=== PATIENT | female | born 1955 | race Caucasian/White ===

== ENCOUNTER 2016-09-27 07:49 | Emergency (ER) | payer OTHER ==
[~2016-09-27] VITALS: Ht 152.4 cm; Wt 63.0 kg
[2016-09-27 07:51] VITALS: Ht 152.4 cm; Wt 63.0 kg
[2016-09-27] MEDS ORDERED: SOD CHLORIDE 0.9% 500 ML IV STA (08:23)
[2016-09-27 08:55] LABS: ADD SCAN DIFF NO
--- NOTE | 2016-09-27 08:58 | RADRPT ---
PROCEDURE: CT Abdomen and pelvis without contrast. CLINICAL INDICATION: Abdominal Pain TECHNIQUE: CT scan of the abdomen and pelvis without contrast was performed on a multidetector hig h-resolution CT scan. . Coronal and sagittal reformatted images were obtained from the axial [facility] e images. Standard CT scan of the abdomen pelvis without contrast protocols were performed. The total exam CTDI equals 8.47 mGy and the total exam DLP equals 422.56 mGy-cm. One or more of the following dose reduction techniques were used: - Automated exposure control. - Adjustment of the mA and/or kV according to patient size. Use of iterative reconstruction technique. COMPARISON: None. FINDINGS: The kidneys are normal in size without calcified renal calculi, hydronephrosis or intra renal masses bilaterally. The ureters and urinary bladder are unremarkable. There is diverticulosis of the descending and sigmoid colon without CT evidence of diverticulitis. The colon is otherwise unremarkable. The appendix is unremarkable. The stomach and small bowel are unremarkable. The liver spleen pancreas adrenal glands and gallbladder are unremarkable. No evidence biliary duct al dilation. There is no evidence of intra or free air, free fluid, abscesses or lymphadenopathy. The uterus is anteverted and anteflexed. Note that the cervix appears enlarged and a pelvic ultrasound may be hel pful for further evaluation. No adnexal masses. There is atherosclerotic vascular disease but no evidence of aortic aneurysm. Lung bases are unrema rkable. There are degenerative changes lower thoracic and lumbar spine without acute osseous findings are os teoblastic/osteolytic lesions. Lower thoracic abdominal pelvic shea are unremarkable. IMPRESSION: 1. Diverticulosis of the descending and sigmoid colon without CT evidence of diverticulitis. 2. Unremarkable appendix. 3. Negative for urinary calcified calculi or obstructive uropathy. 4. Negative for intra-abdominal free air fluid abscesses or lymphadenopathy. 5. The cervix appears enlarged in a pelvic ultrasound is suggested for further evaluation. RPTAT:AAJJ Physician Michael Date Time Electronically viewed and signed by Physician Michael on 09/27/2016 08:57 BM/
[2016-09-27 09:01] LABS: BASOPHIL # 0.1 10^3/ul (0.0-0.1); BASOPHILS % 0.9 % (0.0-2.0); EOSINOPHILS # 0.1 10^3/ul (0.0-0.5); EOSINOPHILS % 2.1 % (0.0-7.0); HEMATOCRIT 42.9 % (37.0-47.0); HEMOGLOBIN 14.1 g/dl (12.0-16.0); LYMPHOCYTES % 35.2 % (15.0-51.0); MEAN CORPUSCULAR HEMOGLOBIN 30.3 pg (29.0-33.0); MEAN CORPUSCULAR HGB CONC 32.9 g/dl (32.0-37.0); MEAN CORPUSCULAR VOLUME 92.3 fl (82.0-101.0); MEAN PLATELET VOLUME 10.8 fl (7.4-10.4); MONOCYTE # 0.4 10^3/ul (0.3-0.9); NEUTROPHIL # 3.2 10^3/ul (1.6-7.5); NEUTROPHILS % 55.6 % (39.0-77.0); PLATELET COUNT 210 10^3/UL (140-415); RED BLOOD COUNT 4.65 10^6/ul (4.20-5.40); RED CELL DISTRIBUTION WIDTH 12.1 % (11.5-14.5); WHITE BLOOD COUNT 5.8 10^3/ul (4.8-10.8)
[2016-09-27 09:37] LABS: ALBUMIN 4.5 g/dl (3.3-4.9); ALBUMIN/GLOBULIN RATIO 1.55; BILIRUBIN,INDIRECT 0.4 mg/dl (0-1.1); BILIRUBIN,TOTAL 0.4 mg/dl (0.2-1.3); CALCIUM 9.1 mg/dl (8.4-10.2); CREATININE 0.55 mg/dl (0.44-1.00); POTASSIUM 3.8 mmol/L (3.5-5.1); TOTAL PROTEIN 7.4 g/dl (6.1-8.1)
[2016-09-27 10:36] LABS: ADD UMIC YES; URINE BILIRUBIN (Dip) NEGATIVE (NEGATIVE); URINE BLOOD (Dip) TRACE (NEGATIVE); URINE COLOR LT. YELLOW (YELLOW); URINE GLUCOSE (Dip) NEGATIVE (NEGATIVE); URINE KETONES (Dip) NEGATIVE (NEGATIVE); URINE LEUKOCYTE ESTERASE (Dip) TRACE (NEGATIVE); URINE NITRITE (Dip) NEGATIVE (NEGATIVE); URINE TOTAL PROTEIN (Dip) NEGATIVE (NEGATIVE); URINE UROBILINOGEN (Dip) 0.2 E.U./dL (0.1-1.0)
--- NOTE | 2016-09-27 10:40 | RADRPT ---
PROCEDURE: US Abdomen (right upper quadrant). CLINICAL INDICATION: Right upper quadrant pain TECHNIQUE: Multiple real-time longitudinal and transverse images of the right upper quadrant of th e abdomen were acquired utilizing a curved array transducer. Images were reviewed on a high-resoluti on PACS workstation. COMPARISON: None FINDINGS: The liver is mildly enlarged and fatty in echogenicity without focal mass or intrahepatic biliary di latation. The portal vein is normal in flow and direction. The gallbladder is normal. The common bi le duct measures 4.7 mm in maximal dimension. The visualized portions of the pancreas are unremarka ble with obscuration of the tail of the pancreas. No free fluid is identified. The right kidney measures 10.0 cm in length. There is no evidence of obstructive uropathy or urolith iasis. No renal masses seen. Visualized portions aorta and inferior vena cava are normal. IMPRESSION: Hepatomegaly with steatosis. Otherwise unremarkable. RPTAT: QQ .Charles Alnaiz MD, Date Time Electronically viewed and signed by .Charles Alaniz MD, on 09/27/2016 10:40 .L/
[2016-09-27 10:58] LABS: BACTERIA,URINE RARE; URINE RBCS 0-2 /HPF (0)
[2016-09-27 11:25] VITALS: BP 128/86; PULSE 55; RESP 16; TEMP 98.4
--- NOTE | 2016-09-27 11:35 | ERD ---
ER Documentation Chief Complaint Date/Time DATE: 09/27/16 TIME: 11:04 Chief Complaint rt lower abd pain x 5 days HPI 61-year-old female with no significant past medical history other than chronic back pain these. The pain is constant, nonradiating, burning internally she states. Is a 7 out of 10. She has no associated nausea, vomiting, constipation , diarrhea, hematochezia, or melena. No associated fevers, chills, dysuria. She was seen by her primary care doctor who ordered an ultrasound but that is scheduled next month. Nothing seems to make the pain better or worse. ROS All systems reviewed and are negative except as per history of present illness. Allergies Allergies: Coded Allergies: levofloxacin (Verified Allergy, Intermediate, ITCHING/RASH ON ENTIRE BODY , 09/27/16) PMhx/Soc History of Surgery: Yes (HEMORRHOID) Anesthesia Reaction: No Hx Neurological Disorder: No Hx Respiratory Disorders: No Hx Cardiac Disorders: No Hx Psychiatric Problems: No Hx Miscellaneous Medical Probl: No Hx Alcohol Use: No Hx Substance Use: No Hx Tobacco Use: No Smoking Status: Never smoker FmHx Family History: No diabetes Physical Exam Vitals Vital Signs Date Time Temp Pulse Resp B/P Pulse Ox O2 Delivery O2 Flow Rate FiO2 09/27/16 08:25 60 16 120/75 98 Room Air 09/27/16 07:51 98.2 67 16 126/73 96 Physical Exam Const: Well-appearing, nontoxic, no distress Head: Atraumatic Eyes: Normal Conjunctiva ENT: Normal External Ears, Nose and Mouth. Neck: Full range of motion..~ No meningismus. Resp: Clear to auscultation bilaterally Cardio: Regular rate and rhythm, no murmurs Abd: Soft, right upper quadrant and right lower quadrant tenderness to palpation which is mild, no rebound or guarding, non distended. No masses. Negative Elkins sign. No McBurney's point tenderness. Normal bowel sounds Skin: No petechiae or rashes Back: No midline or flank tenderness Ext: No cyanosis, or edema Neur: Awake and alert Psych: Normal Mood and Affect Result Diagram: 09/27/16 0840 09/27/16 0840 Results 24 hrs Laboratory Tests Test 09/27/16 08:40 09/27/16 10:10 White Blood Count 5.810^3/ul Red Blood Count 4.6510^6/ul Hemoglobin 14.1g/dl Hematocrit 42.9% Mean Corpuscular Volume 92.3fl Mean Corpuscular Hemoglobin 30.3pg Mean Corpuscular Hemoglobin Concent 32.9g/dl Red Cell Distribution Width 12.1% Platelet Count 25542^3/UL Mean Platelet Volume 10.8fl Neutrophils % 55.6% Lymphocytes % 35.2% Monocytes % 6.0% Eosinophils % 2.1% Basophils % 0.9% Nucleated Red Blood Cells % 0.0/100WBC Neutrophils # 3.210^3/ul Lymphocytes # 2.010^3/ul Monocytes # 0.410^3/ul Eosinophils # 0.110^3/ul Basophils # 0.110^3/ul Nucleated Red Blood Cells # 0.010^3/ul Sodium Level 145mmol/L Potassium Level 3.8mmol/L Chloride Level 107mmol/L Carbon Dioxide Level 30mmol/L Anion Gap 12 Blood Urea Nitrogen 15mg/dl Creatinine 0.55mg/dl Glucose Level 99mg/dl Calcium Level 9.1mg/dl Total Bilirubin 0.4mg/dl Direct Bilirubin 0.00mg/dl Indirect Bilirubin 0.4mg/dl Aspartate Amino Transf (AST/SGOT) 77IU/L Alanine Aminotransferase (ALT/SGPT) 97IU/L Alkaline Phosphatase 81IU/L Total Protein 7.4g/dl Albumin 4.5g/dl Globulin 2.90g/dl Albumin/Globulin Ratio 1.55 Lipase 126U/L Urine Color LT. YELLOW Urine Clarity CLEAR Urine pH 6.5 Urine Specific [place] 1.020 Urine Ketones NEGATIVE Urine Nitrite NEGATIVE Urine Bilirubin NEGATIVE Urine Urobilinogen 0.2 E.U./dL Urine Leukocyte Esterase TRACE Urine Microscopic RBC 0-2/HPF Urine Microscopic WBC 0-2/HPF Urine Bacteria RARE Urine Hemoglobin TRACE Urine Glucose NEGATIVE% Urine Total Protein NEGATIVE Current Medications Medications (Trade) Dose Ordered Sig/[place] Route PRN Reason Start Time Stop Time Status Last Admin Dose Admin Sodium Chloride (NS) 500 ml @ 500 mls/hr Q1H STAT IV 09/27/16 08:23 09/27/16 09:22 DC 09/27/16 08:30 Procedures/MDM Labs: No significant abnormalities on CBC and CMP other than mild elevation in liver enzymes. UA normal Imaging: CT abdomen and pelvis without contrast: No acute abnormalities, diverticulosis noted Ultrasound right upper quadrant: No acute abnormalities, hepatic steatosis noted MDM: Patient is presenting with right-sided abdominal pain for several days. She is afebrile with stable vitals. Her exam is not concerning for surgical abdomen. Her imaging did not show any acute abnormalities. I considered acute cholecystitis, choledocholithiasis, pneumonia, appendicitis, colitis, diverticulitis, pyelonephritis, and kidney stone, however there is no evidence of these. I explained to the patient that I do not know the etiology of her pain but does not seem to be anything serious at this time. I did recommend close follow-up with her primary care doctor in the next 2-3 days if her pain continues as she may need a GI referral. I advised she continue taking Tylenol for the pain. Return precautions were given. Patient was discharged with a copy of her lab and imaging results. Departure Diagnosis: Primary Impression: Right-sided abdominal pain of unknown cause Condition: Stable Patient Instructions: Abdominal Pain, Unknown Cause, (Female) Additional Instructions: Follow up with your regular doctor in the next 2-3 days. Return to the ER for any worsening symptoms. MERLENE LEZAMA MD Sep 27, 2016 11:31
== END 2016-09-27 11:25 | disposition home or self-care (01) ==
LOC: E/R 07:49
DX: R10.31 Right lower quadrant pain (principal); R10.11 Right upper quadrant pain
CPT/HCPCS: 36415; 74176; 76705; 80053; 81001; 83690; 85025; 96360; J7040; Z7502; Z7610

== ENCOUNTER 2017-05-01 00:47 | Emergency (ER) | END 2017-05-01 05:22 | disposition home or self-care (01) ==